=== PATIENT | female | born 1945 | race Caucasian/White ===

== ENCOUNTER 2020-05-11 17:17 | Inpatient (IN) | payer OTHER ==
[~2020-05-11] VITALS: Ht 152.4 cm; Wt 37.2 kg
[2020-05-11 19:12] LABS: HEMOGLOBIN 11.8 gm/dl (12.3-15.3); RED BLOOD COUNT 4.07 M/UL (4.00-5.10); WHITE BLOOD COUNT 18.8 K/UL (4.5-11.0)
[2020-05-11 19:37] LABS: BUN/CREATININE RATIO 53 (0-10)
[2020-05-12 05:03] LABS: HEMOGLOBIN 10.5 gm/dl (12.3-15.3); WHITE BLOOD COUNT 14.6 K/UL (4.5-11.0)
[2020-05-12 05:04] LABS: RED BLOOD COUNT 3.6 M/UL (4.00-5.10)
[2020-05-12 05:24] LABS: BUN/CREATININE RATIO 36 (0-10)
[2020-05-12] MEDS ORDERED: BUSPIRONE HCL5 MG PO (12:08)
[2020-05-12] MEDS ORDERED: MACROBID 100 M100 MG PO (12:09)
[2020-05-12] MEDS ORDERED: TRAMADOL HCL50 MG PO (12:11)
[2020-05-12] MEDS ORDERED: QUETIAPINE FUMA25 MG PO (12:15)
[2020-05-12] MEDS ORDERED: HYDROCHLOROTHIA25 MG PO (12:16)
[2020-05-12] MEDS ORDERED: CARVEDILOL6.25 MG PO (12:16)
[2020-05-12] MEDS ORDERED: MIRTAZAPINE7.5 MG PO (12:16)
[2020-05-12] MEDS ORDERED: VENTOLIN HFA 66.7 GM INH (12:17)
[2020-05-12] MEDS ORDERED: MAG-OX 400 TAB400 MG PO (12:17)
[2020-05-12] MEDS ORDERED: OMEPRAZOLE20 MG PO (12:17)
[2020-05-12] MEDS ORDERED: PRAVASTATIN SOD40 MG PO (12:18)
[2020-05-12] MEDS ORDERED: POTASSIUM CHLO10 ME1 PO (12:18)
[2020-05-12] MEDS ORDERED: PREDNISONE20 MG PO (12:18)
[2020-05-12] MEDS ORDERED: ZYLOPRIM 100 M100 MG PO (12:19)
[2020-05-12] MEDS ORDERED: 8 HOUR650 MG PO (12:20)
[2020-05-12] MEDS ORDERED: ASPIRIN81 MG PO (12:21)
[2020-05-12] MEDS ORDERED: VITAMIN D21250 MCG PO (12:22)
[2020-05-13 06:42] LABS: BUN/CREATININE RATIO 30 (0-10)
[2020-05-13 07:01] LABS: HEMOGLOBIN 10.5 gm/dl (12.3-15.3); RED BLOOD COUNT 3.62 M/UL (4.00-5.10); WHITE BLOOD COUNT 13.6 K/UL (4.5-11.0)
[2020-05-14 04:36] LABS: BUN/CREATININE RATIO 55 (0-10)
[2020-05-15 04:22] LABS: HEMOGLOBIN 10.5 gm/dl (12.3-15.3); RED BLOOD COUNT 3.71 M/UL (4.00-5.10); WHITE BLOOD COUNT 12.5 K/UL (4.5-11.0)
[2020-05-15 04:39] LABS: BUN/CREATININE RATIO 42 (0-10)
[2020-05-16 05:15] LABS: BUN/CREATININE RATIO 26 (0-10)
[2020-05-17 04:03] LABS: BUN/CREATININE RATIO 31 (0-10)
[2020-05-17 06:30] LABS: HEMOGLOBIN 10.5 gm/dl (12.3-15.3); RED BLOOD COUNT 3.66 M/UL (4.00-5.10); WHITE BLOOD COUNT 13.2 K/UL (4.5-11.0)
[2020-05-17] MEDS ORDERED: KEFLEX CAP 250250 MG PO (11:55)
--- NOTE | 2020-05-17 12:02 | NUR ---
DR. MENSAH ASKED TO FIND OUT IF PATIENT HAS EVER TAKEN KEFLEX BEFORE, CONTACTED WHO GAVE ME [facility] NUMBER TO CONTACT BC THEY WILL NOT GIVE HIM ANY INFORMATIN. PHONE NUMBER: [phone]. SPOKE TO ELSA HERNÁNDEZ, PATIENT HAS TAKEN KEFLEX BEFORE IN 2009. ALSO ASKED ME TO SEE IF DR. MENSAH WOULD PRESCRIBE SOMETHING TO DECREASE THE PATIENTS DEMENTIA. I INSTRUCTED PATIENT THAT WOULD BE SOMETHING HE WOULD NEED TO TALK TO HIS PRIMARY CARE PHYSICIAN ABOUT, DR. MENSAH AWARE. [facility]
== END 2020-05-19 17:20 | disposition home health service (06) | DRG 853 ==
LOC: ER1 17:17 → M/S 20:25 → CDU 20:25 → M/S 05-12 08:58
PROVIDERS: Internal Medicine; Physician Assistant; Surgery; ADMIT Internal Medicine
PROC: 0KBN0ZZ Excision of Right Hip Muscle, Open Approach (ICD-10-PCS; 2020-05-14)
PROC: 0KBW0ZZ Excision of Left Foot Muscle, Open Approach (ICD-10-PCS; principal; 2020-05-14 12:15)
DX: A41.51 Sepsis due to Escherichia coli [E. coli] (principal); L89.624 Pressure ulcer of left heel, stage 4; L89.154 Pressure ulcer of sacral region, stage 4; E11.52 Type 2 diabetes mellitus with diabetic peripheral angiopathy with gangrene; I96 Gangrene, not elsewhere classified; Z20.822 Contact with and (suspected) exposure to COVID-19; A41.89 Other specified sepsis; F03.90 Unspecified dementia, unspecified severity, without behavioral disturbance, psychotic disturbance, mood disturbance, and anxiety; E86.0 Dehydration; B96.4 Proteus (mirabilis) (morganii) as the cause of diseases classified elsewhere; I10 Essential (primary) hypertension; Z88.0 Allergy status to penicillin; Z87.440 Personal history of urinary (tract) infections; Z74.01 Bed confinement status; Z88.2 Allergy status to sulfonamides; Z79.82 Long term (current) use of aspirin; Z79.899 Other long term (current) drug therapy; Z79.84 Long term (current) use of oral hypoglycemic drugs
CPT/HCPCS: 36415; 71045; 72192; 80048; 80053; 80202; 81001; 82550; 82553; 82962; 83605; 83735; 83874; 84484; 85025; 86140; 87040; 87070; 87077; 87086; 87186; 87205; 93005; 94760; 96365; 96366; 96367; 96375; 97161; 97166; 99285; J1100; J1335; J1650; J2001; J2185; J2405; J2704; J3010; J3370; J7030; J7070; J7120; U0002

== ENCOUNTER → 2020-07-14 | Outpatient (CLI) | payer OTHER ==
[~2020-07-14] MED LIST: 8 HOUR650 MG PO; ASPIRIN81 MG PO; BUSPIRONE HCL5 MG PO; CARVEDILOL6.25 MG PO; HYDROCHLOROTHIA25 MG PO; KEFLEX CAP 250250 MG PO; MACROBID 100 M100 MG PO; MAG-OX 400 TAB400 MG PO; MIRTAZAPINE7.5 MG PO; OMEPRAZOLE20 MG PO; POTASSIUM CHLO10 ME1 PO; PRAVASTATIN SOD40 MG PO; PREDNISONE20 MG PO; QUETIAPINE FUMA25 MG PO; TRAMADOL HCL50 MG PO; VENTOLIN HFA 66.7 GM INH; VITAMIN D21250 MCG PO; ZYLOPRIM 100 M100 MG PO
== END ==
LOC: WCC 08:40
DX: L89.153 Pressure ulcer of sacral region, stage 3 (principal); L89.893 Pressure ulcer of other site, stage 3; L89.110 Pressure ulcer of right upper back, unstageable; L89.203 Pressure ulcer of unspecified hip, stage 3; L89.103 Pressure ulcer of unspecified part of back, stage 3; L89.619 Pressure ulcer of right heel, unspecified stage; L89.623 Pressure ulcer of left heel, stage 3; F03.90 Unspecified dementia, unspecified severity, without behavioral disturbance, psychotic disturbance, mood disturbance, and anxiety; J44.9 Chronic obstructive pulmonary disease, unspecified; I25.10 Atherosclerotic heart disease of native coronary artery without angina pectoris; I25.2 Old myocardial infarction; M19.90 Unspecified osteoarthritis, unspecified site; E46 Unspecified protein-calorie malnutrition; Z68.1 Body mass index [BMI] 19.9 or less, adult; Z87.891 Personal history of nicotine dependence; Z88.0 Allergy status to penicillin; Z88.2 Allergy status to sulfonamides; Z79.82 Long term (current) use of aspirin; Z79.899 Other long term (current) drug therapy
CPT/HCPCS: 87070; 87077; 87186; 87205; G0463

== ENCOUNTER → 2020-07-21 | Outpatient (CLI) | payer OTHER | LOC: WCC 13:14 | DX: L89.153 Pressure ulcer of sacral region, stage 3 (principal); L89.213 Pressure ulcer of right hip, stage 3; L89.893 Pressure ulcer of other site, stage 3; J44.9 Chronic obstructive pulmonary disease, unspecified; I25.10 Atherosclerotic heart disease of native coronary artery without angina pectoris; E46 Unspecified protein-calorie malnutrition; F02.80 Dementia in other diseases classified elsewhere, unspecified severity, without behavioral disturbance, psychotic disturbance, mood disturbance, and anxiety; B96.4 Proteus (mirabilis) (morganii) as the cause of diseases classified elsewhere; Z74.3 Need for continuous supervision; Z88.0 Allergy status to penicillin; Z88.2 Allergy status to sulfonamides; Z79.82 Long term (current) use of aspirin; Z79.2 Long term (current) use of antibiotics; Z79.899 Other long term (current) drug therapy ==

== ENCOUNTER → 2020-08-04 | Outpatient (CLI) | payer OTHER | LOC: WCC 13:00 | DX: L89.110 Pressure ulcer of right upper back, unstageable (principal); L89.153 Pressure ulcer of sacral region, stage 3; L89.213 Pressure ulcer of right hip, stage 3; L89.619 Pressure ulcer of right heel, unspecified stage; L89.623 Pressure ulcer of left heel, stage 3; J44.9 Chronic obstructive pulmonary disease, unspecified; I25.10 Atherosclerotic heart disease of native coronary artery without angina pectoris; F02.80 Dementia in other diseases classified elsewhere, unspecified severity, without behavioral disturbance, psychotic disturbance, mood disturbance, and anxiety; E46 Unspecified protein-calorie malnutrition; B96.4 Proteus (mirabilis) (morganii) as the cause of diseases classified elsewhere; Z74.3 Need for continuous supervision; Z88.0 Allergy status to penicillin; Z88.2 Allergy status to sulfonamides; Z79.82 Long term (current) use of aspirin; Z79.2 Long term (current) use of antibiotics; Z79.899 Other long term (current) drug therapy ==

== ENCOUNTER → 2020-08-12 | Outpatient (CLI) | payer OTHER | LOC: WCC 11:05 | PROC: 0KBN0ZZ Excision of Right Hip Muscle, Open Approach (ICD-10-PCS; principal; 2020-08-12) | PROC: 0QB10ZZ Excision of Sacrum, Open Approach (ICD-10-PCS; 2020-08-12) | PROC: 0JB70ZZ Excision of Back Subcutaneous Tissue and Fascia, Open Approach (ICD-10-PCS; 2020-08-12) | PROC: 0JBR0ZZ Excision of Left Foot Subcutaneous Tissue and Fascia, Open Approach (ICD-10-PCS; 2020-08-12) | DX: I96 Gangrene, not elsewhere classified (principal); L89.153 Pressure ulcer of sacral region, stage 3; L89.623 Pressure ulcer of left heel, stage 3; L89.213 Pressure ulcer of right hip, stage 3; L89.610 Pressure ulcer of right heel, unstageable; L89.100 Pressure ulcer of unspecified part of back, unstageable; J44.9 Chronic obstructive pulmonary disease, unspecified; I25.10 Atherosclerotic heart disease of native coronary artery without angina pectoris; B96.4 Proteus (mirabilis) (morganii) as the cause of diseases classified elsewhere; F02.80 Dementia in other diseases classified elsewhere, unspecified severity, without behavioral disturbance, psychotic disturbance, mood disturbance, and anxiety; E46 Unspecified protein-calorie malnutrition; Z68.1 Body mass index [BMI] 19.9 or less, adult | CPT/HCPCS: 97597 ==

== ENCOUNTER → 2020-09-02 | Outpatient (CLI) | payer OTHER | LOC: WCC 13:00 | DX: L89.110 Pressure ulcer of right upper back, unstageable (principal); L89.203 Pressure ulcer of unspecified hip, stage 3; L89.103 Pressure ulcer of unspecified part of back, stage 3; L89.619 Pressure ulcer of right heel, unspecified stage; L89.623 Pressure ulcer of left heel, stage 3; J44.9 Chronic obstructive pulmonary disease, unspecified; I25.10 Atherosclerotic heart disease of native coronary artery without angina pectoris; F02.80 Dementia in other diseases classified elsewhere, unspecified severity, without behavioral disturbance, psychotic disturbance, mood disturbance, and anxiety; E46 Unspecified protein-calorie malnutrition; Z74.3 Need for continuous supervision; B96.4 Proteus (mirabilis) (morganii) as the cause of diseases classified elsewhere | CPT/HCPCS: 97597; 97598 ==

== ENCOUNTER → 2020-09-23 | Outpatient (CLI) | payer OTHER | LOC: WCC 13:00 | DX: L89.153 Pressure ulcer of sacral region, stage 3 (principal); L89.213 Pressure ulcer of right hip, stage 3; L89.623 Pressure ulcer of left heel, stage 3; L89.619 Pressure ulcer of right heel, unspecified stage; J44.9 Chronic obstructive pulmonary disease, unspecified; I25.10 Atherosclerotic heart disease of native coronary artery without angina pectoris; E46 Unspecified protein-calorie malnutrition; F02.80 Dementia in other diseases classified elsewhere, unspecified severity, without behavioral disturbance, psychotic disturbance, mood disturbance, and anxiety; Z74.3 Need for continuous supervision; B96.4 Proteus (mirabilis) (morganii) as the cause of diseases classified elsewhere; Z68.1 Body mass index [BMI] 19.9 or less, adult; Z79.82 Long term (current) use of aspirin ==

== ENCOUNTER → 2020-10-21 | Outpatient (CLI) | payer OTHER | LOC: WCC 13:00 | PROC: 0JB70ZZ Excision of Back Subcutaneous Tissue and Fascia, Open Approach (ICD-10-PCS; principal; 2020-10-21) | PROC: 0JB70ZZ Excision of Back Subcutaneous Tissue and Fascia, Open Approach (ICD-10-PCS; 2020-10-21) | PROC: 0JBL0ZZ Excision of Right Upper Leg Subcutaneous Tissue and Fascia, Open Approach (ICD-10-PCS; 2020-10-21) | DX: L89.623 Pressure ulcer of left heel, stage 3 (principal); L89.153 Pressure ulcer of sacral region, stage 3; L89.213 Pressure ulcer of right hip, stage 3; L89.610 Pressure ulcer of right heel, unstageable; L89.100 Pressure ulcer of unspecified part of back, unstageable; H26.9 Unspecified cataract; J44.9 Chronic obstructive pulmonary disease, unspecified; I25.10 Atherosclerotic heart disease of native coronary artery without angina pectoris; I25.2 Old myocardial infarction; M19.90 Unspecified osteoarthritis, unspecified site; F02.80 Dementia in other diseases classified elsewhere, unspecified severity, without behavioral disturbance, psychotic disturbance, mood disturbance, and anxiety; B95.4 Other streptococcus as the cause of diseases classified elsewhere; E46 Unspecified protein-calorie malnutrition; Z68.1 Body mass index [BMI] 19.9 or less, adult; Z88.0 Allergy status to penicillin; Z88.2 Allergy status to sulfonamides; Z79.82 Long term (current) use of aspirin; Z79.899 Other long term (current) drug therapy | CPT/HCPCS: 97597 ==

== ENCOUNTER → 2020-11-04 | Outpatient (CLI) | payer OTHER | LOC: WCC 13:00 | PROC: 0JB70ZZ Excision of Back Subcutaneous Tissue and Fascia, Open Approach (ICD-10-PCS; principal; 2020-11-04) | PROC: 0JBQ0ZZ Excision of Right Foot Subcutaneous Tissue and Fascia, Open Approach (ICD-10-PCS; principal; 2020-11-04) | PROC: 0JBN0ZZ Excision of Right Lower Leg Subcutaneous Tissue and Fascia, Open Approach (ICD-10-PCS; principal; 2020-11-04) | DX: L89.153 Pressure ulcer of sacral region, stage 3 (principal); L89.213 Pressure ulcer of right hip, stage 3; L89.623 Pressure ulcer of left heel, stage 3; L89.110 Pressure ulcer of right upper back, unstageable; L89.619 Pressure ulcer of right heel, unspecified stage; L89.103 Pressure ulcer of unspecified part of back, stage 3; F03.90 Unspecified dementia, unspecified severity, without behavioral disturbance, psychotic disturbance, mood disturbance, and anxiety; J44.9 Chronic obstructive pulmonary disease, unspecified; I25.10 Atherosclerotic heart disease of native coronary artery without angina pectoris; B96.4 Proteus (mirabilis) (morganii) as the cause of diseases classified elsewhere; H26.9 Unspecified cataract; I25.2 Old myocardial infarction; M19.90 Unspecified osteoarthritis, unspecified site; E46 Unspecified protein-calorie malnutrition; Z68.1 Body mass index [BMI] 19.9 or less, adult; Z79.2 Long term (current) use of antibiotics; Z79.82 Long term (current) use of aspirin; Z79.899 Other long term (current) drug therapy | CPT/HCPCS: 87070; 87077; 87186; 87205 ==

== ENCOUNTER → 2020-11-18 | Outpatient (CLI) | payer OTHER | LOC: WCC 13:00 | DX: L89.154 Pressure ulcer of sacral region, stage 4 (principal); L89.214 Pressure ulcer of right hip, stage 4; L89.103 Pressure ulcer of unspecified part of back, stage 3; L89.890 Pressure ulcer of other site, unstageable; J44.9 Chronic obstructive pulmonary disease, unspecified; I25.10 Atherosclerotic heart disease of native coronary artery without angina pectoris; F03.90 Unspecified dementia, unspecified severity, without behavioral disturbance, psychotic disturbance, mood disturbance, and anxiety; E46 Unspecified protein-calorie malnutrition; B96.4 Proteus (mirabilis) (morganii) as the cause of diseases classified elsewhere; Z88.0 Allergy status to penicillin; Z88.2 Allergy status to sulfonamides; Z79.82 Long term (current) use of aspirin; Z79.899 Other long term (current) drug therapy | CPT/HCPCS: 97597 ==

== ENCOUNTER → 2020-12-02 | Outpatient (CLI) | payer OTHER | LOC: WCC 13:00 | DX: L89.154 Pressure ulcer of sacral region, stage 4 (principal); L89.213 Pressure ulcer of right hip, stage 3; L89.890 Pressure ulcer of other site, unstageable; L89.619 Pressure ulcer of right heel, unspecified stage; L89.110 Pressure ulcer of right upper back, unstageable; L89.103 Pressure ulcer of unspecified part of back, stage 3; L89.623 Pressure ulcer of left heel, stage 3; J44.9 Chronic obstructive pulmonary disease, unspecified; I25.10 Atherosclerotic heart disease of native coronary artery without angina pectoris; F02.80 Dementia in other diseases classified elsewhere, unspecified severity, without behavioral disturbance, psychotic disturbance, mood disturbance, and anxiety; B96.4 Proteus (mirabilis) (morganii) as the cause of diseases classified elsewhere; R63.6 Underweight; M19.90 Unspecified osteoarthritis, unspecified site; H26.9 Unspecified cataract; Z74.3 Need for continuous supervision; Z68.1 Body mass index [BMI] 19.9 or less, adult; Z79.82 Long term (current) use of aspirin; Z79.899 Other long term (current) drug therapy | CPT/HCPCS: A6212 ==

== ENCOUNTER → 2020-12-16 | Outpatient (CLI) | payer OTHER | LOC: WCC 11:41 | DX: L89.154 Pressure ulcer of sacral region, stage 4 (principal); L89.113 Pressure ulcer of right upper back, stage 3; L89.213 Pressure ulcer of right hip, stage 3; L89.612 Pressure ulcer of right heel, stage 2; L89.623 Pressure ulcer of left heel, stage 3; J44.9 Chronic obstructive pulmonary disease, unspecified; I25.10 Atherosclerotic heart disease of native coronary artery without angina pectoris; F02.80 Dementia in other diseases classified elsewhere, unspecified severity, without behavioral disturbance, psychotic disturbance, mood disturbance, and anxiety; E46 Unspecified protein-calorie malnutrition; B96.4 Proteus (mirabilis) (morganii) as the cause of diseases classified elsewhere; Z74.3 Need for continuous supervision; Z88.0 Allergy status to penicillin; Z88.2 Allergy status to sulfonamides; Z79.82 Long term (current) use of aspirin; Z79.899 Other long term (current) drug therapy | CPT/HCPCS: 97597 ==

== ENCOUNTER → 2021-01-06 | Outpatient (CLI) | payer OTHER | END | disposition home or self-care (01) | LOC: WCC 07:54 | PROC: 0JB70ZZ Excision of Back Subcutaneous Tissue and Fascia, Open Approach (ICD-10-PCS; principal; 2021-01-06) | DX: L89.154 Pressure ulcer of sacral region, stage 4 (principal); L89.612 Pressure ulcer of right heel, stage 2; L89.213 Pressure ulcer of right hip, stage 3; L89.103 Pressure ulcer of unspecified part of back, stage 3; J44.9 Chronic obstructive pulmonary disease, unspecified; I25.10 Atherosclerotic heart disease of native coronary artery without angina pectoris; I25.2 Old myocardial infarction; M19.90 Unspecified osteoarthritis, unspecified site; F02.80 Dementia in other diseases classified elsewhere, unspecified severity, without behavioral disturbance, psychotic disturbance, mood disturbance, and anxiety; H26.9 Unspecified cataract; B96.4 Proteus (mirabilis) (morganii) as the cause of diseases classified elsewhere; F03.90 Unspecified dementia, unspecified severity, without behavioral disturbance, psychotic disturbance, mood disturbance, and anxiety; E46 Unspecified protein-calorie malnutrition; Z74.3 Need for continuous supervision; Z79.82 Long term (current) use of aspirin; Z79.899 Other long term (current) drug therapy; Z68.1 Body mass index [BMI] 19.9 or less, adult; Z88.0 Allergy status to penicillin; Z88.2 Allergy status to sulfonamides ==

== ENCOUNTER → 2021-01-20 | Outpatient (CLI) | payer OTHER | END | disposition home or self-care (01) | LOC: WCC 07:38 | PROC: 0JB70ZZ Excision of Back Subcutaneous Tissue and Fascia, Open Approach (ICD-10-PCS; principal; 2021-01-20) | DX: L89.154 Pressure ulcer of sacral region, stage 4 (principal); L89.203 Pressure ulcer of unspecified hip, stage 3; L89.892 Pressure ulcer of other site, stage 2; J44.9 Chronic obstructive pulmonary disease, unspecified; I25.10 Atherosclerotic heart disease of native coronary artery without angina pectoris; H26.9 Unspecified cataract; I25.2 Old myocardial infarction; M19.90 Unspecified osteoarthritis, unspecified site; F02.80 Dementia in other diseases classified elsewhere, unspecified severity, without behavioral disturbance, psychotic disturbance, mood disturbance, and anxiety; E46 Unspecified protein-calorie malnutrition; Z68.1 Body mass index [BMI] 19.9 or less, adult; Z79.899 Other long term (current) drug therapy; Z88.0 Allergy status to penicillin; Z88.2 Allergy status to sulfonamides; Z79.82 Long term (current) use of aspirin ==

== ENCOUNTER → 2021-02-02 | Outpatient (CLI) | payer OTHER | LOC: WCC 07:49 | DX: L89.154 Pressure ulcer of sacral region, stage 4 (principal); L89.892 Pressure ulcer of other site, stage 2; J44.9 Chronic obstructive pulmonary disease, unspecified; I25.10 Atherosclerotic heart disease of native coronary artery without angina pectoris; F02.80 Dementia in other diseases classified elsewhere, unspecified severity, without behavioral disturbance, psychotic disturbance, mood disturbance, and anxiety; E46 Unspecified protein-calorie malnutrition; Z74.3 Need for continuous supervision; Z88.0 Allergy status to penicillin; Z88.2 Allergy status to sulfonamides; Z79.82 Long term (current) use of aspirin; Z79.899 Other long term (current) drug therapy ==

== ENCOUNTER → 2021-02-17 | Outpatient (CLI) | payer OTHER | LOC: WCC 07:58 | DX: L89.154 Pressure ulcer of sacral region, stage 4 (principal); L89.892 Pressure ulcer of other site, stage 2; J44.9 Chronic obstructive pulmonary disease, unspecified; I25.10 Atherosclerotic heart disease of native coronary artery without angina pectoris; F02.80 Dementia in other diseases classified elsewhere, unspecified severity, without behavioral disturbance, psychotic disturbance, mood disturbance, and anxiety; E46 Unspecified protein-calorie malnutrition; Z74.3 Need for continuous supervision; Z88.0 Allergy status to penicillin; Z88.2 Allergy status to sulfonamides; Z79.82 Long term (current) use of aspirin; Z79.899 Other long term (current) drug therapy ==

== ENCOUNTER → 2021-03-08 | Outpatient (CLI) | payer OTHER | LOC: WCC 07:43 | DX: L89.154 Pressure ulcer of sacral region, stage 4 (principal); L89.892 Pressure ulcer of other site, stage 2; J44.9 Chronic obstructive pulmonary disease, unspecified; I25.10 Atherosclerotic heart disease of native coronary artery without angina pectoris; F02.80 Dementia in other diseases classified elsewhere, unspecified severity, without behavioral disturbance, psychotic disturbance, mood disturbance, and anxiety; E46 Unspecified protein-calorie malnutrition; Z74.3 Need for continuous supervision; Z79.82 Long term (current) use of aspirin; Z88.0 Allergy status to penicillin; Z88.2 Allergy status to sulfonamides ==